=== PATIENT | male | born 1970 | race Native Hawaiian/Other Pacific Islander ===

== ENCOUNTER 2020-10-24 14:12 | Emergency (ER) | payer SELFPAY ==
--- NOTE | 2020-10-24 15:19 | Event Note ---
ED Screening Note Date of service: 10/24/20 Time: 15:17 ED Screening Note: This initial assessment/diagnostic orders/clinical plan/treatment(s) is/are subject to change based on patients health status, clinical progression and re- assessment by fellow clinical providers in the ED. Further treatment and workup at subsequent clinical providers discretion. Patient/guardian urged not to elope from the ED as their condition may be serious if not clinically assessed and managed. Initial orders include: 50-year-old male complaining of fever chills nausea and vomiting x3 days. He has a past medical history of diabetes. States he is compliant with his medications. He denies being around anyone with Covid. States he is not able to eat for 3 days. he denies cough chest pain and shortness of breath. Patient in no acute distress. No vomiting today just feeling nauseated and hungry
--- NOTE | 2020-10-24 15:54 | XRay Report ---
CHEST PA AND LATERAL VIEWS INDICATION: COVID LIKE SYMPTOMS. COMPARISON: None. FINDINGS: Support devices: None. Heart: Within normal limits. Lungs/Pleura: There is airspace disease in the inferior right upper lobe. Linear left basilar opaciti es may be due to atelectasis. No pleural abnormality. IMPRESSION: 1. Right upper lobe pneumonia. Signer Name: Davin Lomeli MD Signed: 10/24/2020 3:49 PM Workstation Name: [id number]
[2020-10-24 16:07] LABS: Alanine Aminotransferase 23 units/L (7-56); Albumin 4.2 g/dL (3.9-5); BUN/Creatinine Ratio 9; Blood Urea Nitrogen 8 mg/dL (9-20); Calcium 8.3 mg/dL (8.4-10.2); Hemolysis Index 9
[2020-10-24 16:17] LABS: Hematocrit 43.4 % (35.5-45.6); Hemoglobin 14.6 gm/dl (11.8-15.2); Mean Corpuscular HGB Conc 34 % (32-34); Mean Corpuscular Volume 86 fl (84-94); Platelet Count 228 K/mm3 (140-440); Red Blood Count 5.02 M/mm3 (3.65-5.03)
--- NOTE | 2020-10-24 19:09 | Emergency Department Report ---
ED General Adult HPI - General Chief complaint: Nausea/Vomiting/Diarrhea Stated complaint: FEVER Source: patient, family Mode of arrival: Ambulatory Limitations: Language Barrier - History of Present Illness Initial comments: The patient was evaluated in the emergency department for symptoms described in the history of present illness. He/she was evaluated in the context of the global COVID-19 pandemic, which necessitated consideration that the patient might be at risk for infection with the virus that causes COVID-19. Institutional protocols and algorithms that pertain to the evaluation of patients at risk for COVID-19 are in a state of rapid change based on informatio n released by regulatory bodies including the CDC and federal and state organizations. These policies and algorithms were followed during the patient's care in the emergency department. Please note that these policies, procedures and recommendations changed on a rapid basis. 50-year-old male presents to the emergency room for fever intermittently for the last 3 days. Patient admits to sweats nausea but no vomiting. Denies any abdominal pain diarrhea. Has not been tested for Covid. Does have a past medical history of diabetes and is compliant with medications. Onset/Timin -: days(s) Severity scale (0 -10): 0 Associated Symptoms: cough (Slight cough), fever/chills, nausea/vomiting (Nausea no vomiting) - Related Data Previous Rx's Medication Instructions Recorded Last Taken Type Azithromycin [Zithromax Z-GUSTAVO] 250 mg PO DAILY #6 tab 10/24/20 Unknown Rx Allergies Allergy/AdvReac Type Severity Reaction Status Date / Time No Known Allergies Allergy Unverified 10/24/20 14:59 ED Review of Systems ROS: Stated complaint: FEVER Other details as noted in HPI Comment: All other systems reviewed and negative ED Past Medical Hx - Past Medical History Previous Medical History?: Yes Hx Hypertension: Yes Hx Diabetes: Yes - Surgical History Past Surgical History?: No - Social History Smoking Status: Never Smoker Substance Use Type: Alcohol - Medications Home Medications: Home Medications Medication Instructions Recorded Confirmed Last Taken Type Azithromycin [Zithromax Z-GUSTAVO] 250 mg PO DAILY #6 tab 10/24/20 Unknown Rx ED Physical Exam - General Limitations: Language Barrier General appearance: alert, in no apparent distress - Head Head exam: Present: atraumatic, normocephalic - Eye Eye exam: Present: normal appearance, PERRL - ENT ENT exam: Present: mucous membranes moist - Respiratory Respiratory exam: Present: normal lung sounds bilaterally. Absent: respiratory distress, chest wall tenderness - Cardiovascular Cardiovascular Exam: Present: regular rate, normal rhythm. Absent: systolic murmur, diastolic murmur, rubs, gallop - GI/Abdominal GI/Abdominal exam: Present: soft, normal bowel sounds - Back Exam Back exam: Present: normal inspection, full ROM - Neurological Exam Neurological exam: Present: alert, oriented X3 - Psychiatric Psychiatric exam: Present: normal affect, normal mood ED Course Vital Signs 10/24/20 15:02 Temperature 99.1 F Pulse Rate 93 H Respiratory 20 Rate Blood Pressure 140/85 O2 Sat by Pulse 98 Oximetry ED Medical Decision Making - Lab Data Result diagrams: 10/24/20 15:34 10/24/20 15:34 - Radiology Data Radiology results: report reviewed Patient: MIGUEL HOROWITZ MR#: [id number] : 1970 Acct:[id number] Age/Sex: 50 / M ADM Date: 10/24/20 Loc: ED Attending Dr: Ordering Physician: PRINCE LONDON Date of Service: 10/24/20 Procedure(s): XR chest routine 2V Accession Number(s): [id number] cc: PRINCE LONDON Fluoro Time In Minutes: CHEST PA AND LATERAL VIEWS INDICATION: COVID LIKE SYMPTOMS. COMPARISON: None. FINDINGS: Support devices: None. Heart: Within normal limits. Lungs/Pleura: There is airspace disease in the inferior right upper lobe. Linear left basilar opacities may be due to atelectasis. No pleural abnormality. IMPRESSION: 1. Right upper lobe pneumonia. Signer Name: Davin Lomeli MD Signed: 10/24/2020 3:49 PM Workstation Name: [id number] Transcribed By: YOLY Dictated By: Davin Lomeli MD Electronically Authenticated By: Davin Lomeli MD Signed Date/Time: 10/24/201548 DD/ 48 TD/TT: Critical care attestation.: If time is entered above; I have spent that time in minutes in the direct care of this critically ill patient, excluding procedure time. ED Disposition Clinical Impression: Right upper lobe pneumonia Qualifiers: Pneumonia type: due to unspecified organism Qualified Code(s): J18.9 - Pneumonia, unspecified organism Disposition: DC-01 TO HOME OR SELFCARE Is pt being admited?: No Does the pt Need Aspirin: No Condition: Stable Instructions: Bacterial Pneumonia (ED), Community-Acquired Pneumonia, Adult Additional Instructions: Complete antibiotics as prescribed. Tylenol or ibuprofen for fever. Follow-up with your primary care provider. Antibiticos completos segn lo prescrito. Tylenol o ibuprofeno para la fiebre. Seguimiento con rosales proveedor de atencin primaria. Prescriptions: Azithromycin [Zithromax Z-GUSTAVO] 250 mg PO DAILY #6 tab Referrals: CHARLEY LEW MD [Primary Care Provider] - 3-5 Days Forms: Work/School Release Form(ED)
[2020-10-24 19:41] VITALS: BP 135/88
== END 2020-10-24 19:43 | disposition home or self-care (01) ==
LOC: ED 14:12
DX: J18.1 Lobar pneumonia, unspecified organism (principal); I10 Essential (primary) hypertension; E11.9 Type 2 diabetes mellitus without complications; Z79.899 Other long term (current) drug therapy
CPT/HCPCS: 36415; 71046; 80053; 85027